=== PATIENT | female | born 1955 | race Caucasian/White ===

== ENCOUNTER 2019-06-20 11:33 | Emergency (ER) | payer OTHER ==
[~2019-06-20] VITALS: Ht 152.4 cm; Wt 63.5 kg
[2019-06-20 11:57] VITALS: Ht 152.4 cm; Wt 63.5 kg
[2019-06-20 12:41] LABS: BASOPHIL % 0.3 % (0-2); PLATELET COUNT 301 x10^3mcL (130-400); RED CELL DISTRIBUTION WIDTH 13.6 % (11.5-14.5)
[2019-06-20 12:53] LABS: microscopic required? NO
[2019-06-20 13:02] LABS: urine erythrocyte NEGATIVE (NEGATIVE)
[2019-06-20 13:10] LABS: AST/SGOT 54 U/L (15-37); BILIRUBIN TOTAL 0.3 mg/dL (0.20-1.00); CALCIUM 8.7 mg/dL (8.5-10.1); CARBON DIOXIDE 27.1 mmol/L (21-32); CHLORIDE SERUM 105 mmol/L (98-107); CREATININE SERUM 0.8 mg/dL (0.6-1.0); GFR1 > 60 mL/min; GLUCOSE SERUM 184 mg/dL (74-106); SODIUM SERUM 141 mmol/L (136-145); TOTAL PROTEIN, SERUM 6.3 g/dL (6.4-8.2)
[2019-06-20 13:11] LABS: ALKALINE PHOSPHATASE 98 U/L (46-116); ALT/SGPT 210 U/L (14-59); LIPASE 217 IU/L (73-393)
[2019-06-20 15:25] VITALS: BP 123/92
== END 2019-06-20 15:25 | disposition home or self-care (01) ==
LOC: ED 11:33
PROVIDERS: Student in an Organized Health Care Education/Training Program
DX: K52.9 Noninfective gastroenteritis and colitis, unspecified (principal); R91.1 Solitary pulmonary nodule; I10 Essential (primary) hypertension; Z90.49 Acquired absence of other specified parts of digestive tract; Z90.710 Acquired absence of both cervix and uterus
CPT/HCPCS: 87804; J2405; J7030; Q9967